=== PATIENT | male | born 1985 ===

== ENCOUNTER 2018-12-05 11:41 | Emergency (ER) | payer SELFPAY ==
[2018-12-05 11:50] VITALS: PULSE 70
[2018-12-05] MEDS ORDERED: Sodium Chloride 0.9% 1,000 ML IV ONE (11:52)
--- NOTE | 2018-12-05 12:11 | C.PDOC ---
History Of Present Illness 32 y/o male pt presents to the ER c/o right flank pain x1 day. Associated sx includes dysuria, nausea, vomiting and pain radiating forward. Pt denies hesitancy, hematuria, scrotal pain or penile discharge. Time Seen by Provider: 12/05/18 11:51 Chief Complaint (Nursing): Male Genitourinary History Per: Patient History/Exam Limitations: no limitations Onset/Duration Of Symptoms: Days (x1) Current Symptoms Are (Timing): Still Present Past Medical History Reviewed: Historical Data, Nursing Documentation, Vital Signs Vital Signs: Last Vital Signs Temp 98.3 F 12/05/18 11:44 Pulse 70 12/05/18 11:44 Resp 18 12/05/18 11:44 BP 129/78 12/05/18 11:44 Pulse Ox 97 12/05/18 11:44 - Medical History PMH: Kidney Stones Family History: States: Unknown Family Hx - Social History Hx Alcohol Use: Yes Hx Substance Use: Yes - Immunization History Hx Tetanus Toxoid Vaccination: No Hx Influenza Vaccination: No Hx Pneumococcal Vaccination: No Review Of Systems Constitutional: Negative for: Fever, Chills Eyes: Negative for: Pain ENT: Negative for: Ear Pain Cardiovascular: Negative for: Chest Pain Respiratory: Negative for: Cough Gastrointestinal: Positive for: Nausea, Vomiting, Abdominal Pain (right flank pain ) Genitourinary: Positive for: Dysuria. Negative for: Hematuria, Penile Discharge, Scrotal Pain, Other (hesitancy ) Skin: Negative for: Rash Neurological: Negative for: Weakness, Numbness Psych: Negative for: Anxiety Physical Exam - Physical Exam Appears: Non-toxic, No Acute Distress Skin: Warm, Dry Head: Normacephalic Eye(s): bilateral: Normal Inspection Nose: Normal Oral Mucosa: Moist Throat: Normal Neck: Normal ROM, Supple Cardiovascular: Rhythm Regular Respiratory: Normal Breath Sounds Gastrointestinal/Abdominal: Soft, No Tenderness, No Distention, No Guarding, No Rebound Back: CVA Tenderness (right ) Male Genital: No Circumcised, No Other (scrotal tenderness or penile discharge ) Extremity: Normal ROM (x4) Neurological/Psych: Oriented x3, Normal Speech ED Course And Treatment - Laboratory Results Result Diagrams: 12/05/18 13:17 12/05/18 12:56 O2 Sat by Pulse Oximetry: 97 (RA) Pulse Ox Interpretation: Normal Medical Decision Making Medical Decision Making: Plans: -- chem labs -- blood work -- CT abd and pelvis -- Morphine -- IV fluids -- Zofran 1:01PM CT abd/pelvis LOWER THORAX: There is a 6 mm subpleural nodule in the right lower lobe and 5 mm subpleural nodule in the left lower lobe. There is a subcentimeter calcified nodule in the lingula. There is subsegmental atelectasis in both lung bases. LIVER: Normal in size. No gross lesion or ductal dilatation. GALLBLADDER AND BILE DUCTS: No calcified gallstones. PANCREAS: Normal in size. No gross lesion or ductal dilatation. SPLEEN: Normal in size. ADRENALS: No discrete nodule. KIDNEYS AND URETERS: There is edema enlargement of the right kidney, significant perinephric fat stranding, mild hydronephrosis and moderate diffuse dilatation of the right ureteral. The left kidney is normal in size. There is a punctate nonobstructing stone in the left interpolar region. VASCULATURE: The aorta is normal in caliber. No aortic aneurysm. No aortic atherosclerotic calcification or mural plaque present. BOWEL: The small bowel loops are normal in caliber. There is scattered left colonic diverticulosis without CT evidence for acute diverticulitis. No bowel dilatation or obstruction. APPENDIX: Normal retrocecal appendix. PERITONEUM: No free fluid. No free air. LYMPH NODES: No enlarged lymph nodes. BLADDER: The urinary bladder is partially decompressed. There is a 2 mm stone in the urinary bladder distal to the right UV junction. REPRODUCTIVE: Unremarkable. BONES: No acute fracture. There is a small sclerotic focus in the left ilium statistically most compatible with a bone island. OTHER FINDINGS: None. IMPRESSION: 1. Findings are most compatible with recent passage of a 2 mm right ureteral stone seen in the urinary bladder with significant inflammatory changes in the right kidney and mild right hydroureteronephrosis. 2. Punctate nonobstructing stone in the left interpolar region. 3. Left colonic diverticulosis without CT evidence for acute diverticulitis. 4. 6 mm subpleural nodule in the right lower lobe and 5 mm subpleural nodule in the left lower lobe, and subcentimeter calcified granuloma in the lingula. Findings are likely postinflammatory however CT scan of the thorax without intravenous contrast on a nonemergent basis is recommended for complete evaluation of the lungs. 3:16PM On reevaluation patient reports that he feels better. He reports that he is pain free and tolerating po. UA negative for leukocytes and nitrates. Normal wbc. Ucx was sent. Patient was given flomax and instructed to follow-up with urology. He was also made aware of his lung nodules on CT and given copy of CT results to follow-up as outpatient. Disposition - Disposition Referrals: Jus Escamilla Jr., MD [Staff Provider] - Disposition: HOME/ ROUTINE Disposition Time: 15:00 Condition: GOOD Additional Instructions: You need to follow-up as outpatient for lung nodules with dedicated CT. (See copy of report you were given) Follow-up with PMD within 2 days. Return to ED if condition worsens. Follow-up with Dr. Escamilla for renal stones. Take flomax. Take percocet for pain. Prescriptions: oxyCODONE/Acetaminophen [Percocet 5/325 mg Tab] 1 ea PO Q6 PRN #15 tab PRN Reason: Pain, Severe (8-10) Tamsulosin [Flomax] 0.4 mg PO DAILY #30 cap Instructions: Kidney Stones in Adults, Pulmonary Nodule Forms: [employer] (Greek) - Clinical Impression Clinical Impression: Pulmonary nodule, Renal stone - Scribe Statement The provider has reviewed the documentation as recorded by the Nicolasibbill Mendoza Do Provider Attestation: All medical record entries made by the Scribe were at my direction and personally dictated by me. I have reviewed the chart and agree that the record accurately reflects my personal performance of the history, physical exam, medical decision making, and the department course for this patient. I have also personally directed, reviewed, and agree with the discharge instructions and disposition.
[2018-12-05] MEDS ORDERED: Sodium Chloride 0.9% 1,000 ML ONE (12:40)
[2018-12-05] MEDS ORDERED: Morphine 4 MG/ML VIAL ONE ×2 (12:40→14:29)
--- NOTE | 2018-12-05 13:03 | CT ---
Date of service: 12/05/2018 PROCEDURE: CT Abdomen and Pelvis without intravenous contrast HISTORY: R flank pain, dysuria COMPARISON: None. TECHNIQUE: Technique. Contrast dose: Radiation dose: Total exam DLP = 1335.17 mGy-cm. This CT exam was performed using one or more of the following dose reduction techniques: Automated exposure control, adjustment of the mA and/or kV according to patient size, and/or use of iterative reconstruction technique. FINDINGS: LOWER THORAX: There is a 6 mm subpleural nodule in the right lower lobe and 5 mm subpleural nodule in the left lower lobe. There is a subcentimeter calcified nodule in the lingula. There is subsegmental atelectasis in both lung bases. LIVER: Normal in size. No gross lesion or ductal dilatation. GALLBLADDER AND BILE DUCTS: No calcified gallstones. PANCREAS: Normal in size. No gross lesion or ductal dilatation. SPLEEN: Normal in size. ADRENALS: No discrete nodule. KIDNEYS AND URETERS: There is edema enlargement of the right kidney, significant perinephric fat stranding, mild hydronephrosis and moderate diffuse dilatation of the right ureteral. The left kidney is normal in size. There is a punctate nonobstructing stone in the left interpolar region. VASCULATURE: The aorta is normal in caliber. No aortic aneurysm. No aortic atherosclerotic calcification or mural plaque present. BOWEL: The small bowel loops are normal in caliber. There is scattered left colonic diverticulosis without CT evidence for acute diverticulitis. No bowel dilatation or obstruction. APPENDIX: Normal retrocecal appendix. PERITONEUM: No free fluid. No free air. LYMPH NODES: No enlarged lymph nodes. BLADDER: The urinary bladder is partially decompressed. There is a 2 mm stone in the urinary bladder distal to the right UV junction. REPRODUCTIVE: Unremarkable. BONES: No acute fracture. There is a small sclerotic focus in the left ilium statistically most compatible with a bone island. OTHER FINDINGS: None. IMPRESSION: 1. Findings are most compatible with recent passage of a 2 mm right ureteral stone seen in the urinary bladder with significant inflammatory changes in the right kidney and mild right hydroureteronephrosis. 2. Punctate nonobstructing stone in the left interpolar region. 3. Left colonic diverticulosis without CT evidence for acute diverticulitis. 4. 6 mm subpleural nodule in the right lower lobe and 5 mm subpleural nodule in the left lower lobe, and subcentimeter calcified granuloma in the lingula. Findings are likely postinflammatory however CT scan of the thorax without intravenous contrast on a nonemergent basis is recommended for complete evaluation of the lungs.
[2018-12-05 13:18] LABS: ALB/GLOB RATIO 1.4 (1.0-2.1); ALBUMIN 4.2 g/dL (3.5-5.0); ALT/SGPT 17 U/L (21-72); AST/SGOT 29 U/L (17-59); BLOOD UREA NITROGEN 16 mg/dL (9-20); CALCIUM 8.9 mg/dl (8.6-10.4); GFR NON-AFRICAN AMERICAN > 60; LIPASE 71 U/L (23-300)
[2018-12-05 13:21] LABS: BASO % 0.3 % (0.0-2.0); EOS # 0.1 K/uL (0.0-0.7); EOS % 0.5 % (0.0-4.0); HEMOGLOBIN 15.4 g/dL (12.0-18.0); MEAN CELL VOLUME 87.3 fL (80.0-94.0); MEAN CORPUSCULAR HEMOGLOBIN 29.8 pg (27.0-31.0); MEAN CORPUSCULAR HGB CONC 34.1 g/dL (33.0-37.0); MEAN PLATELET VOLUME 9.7 fL (7.2-11.7); MONO # 0.8 K/uL (0.0-0.8); MONO % 8.4 % (0.0-10.0); NEUT # 7.5 K/uL (1.8-7.0); NEUT % 79.8 % (50.0-75.0); NRBC % 0.1 % (0.0-2.0); RBC 5.18 Mil/uL (4.40-5.90); RED CELL DISTRIBUTION WIDTH 13.6 % (11.5-14.5); WHITE BLOOD COUNT 9.4 K/uL (4.8-10.8)
[2018-12-05 14:41] LABS: SQUAMOUS EPITHIAL < 1 /hpf (0-5); URINE BACTERIA RARE (<OCC)
[2018-12-05 14:57] LABS: URINE BILIRUBIN NEGATIVE (NEGATIVE); URINE CLARITY Clear (Clear); URINE COLOR YELLOW (YELLOW); URINE GLUCOSE (UA) NEGATIVE (Normal)
[2018-12-05 14:58] LABS: URINE BLOOD TRACE-INTACT (NEGATIVE); URINE LEUKOCYTE ESTERASE Negative Leu/uL (Negative); URINE PROTEIN NEGATIVE (NEGATIVE); URINE UROBILINOGEN 0.2 mg/dL (0.2-1.0)
[2018-12-05 15:34] VITALS: BP 116/50; RESP 15; TEMP 99.1; O2SAT 96
== END 2018-12-05 15:36 | disposition home or self-care (01) ==
LOC: C.ER 11:41
DX: N20.0 Calculus of kidney (principal); R91.1 Solitary pulmonary nodule
CPT/HCPCS: 74176; 80053; 81001; 83690; 83735; 84100; 85025; 87086; 96374; 96375; 96376; 99285; J1885; J2270; J2405; J7030